=== PATIENT | female | born 1950 | race Caucasian/White ===

== ENCOUNTER 2019-07-31 13:37 | Outpatient (CLI) | payer MEDICARE, SELFPAY ==
--- NOTE | ~2019-07-31 | XR_ITS ---
EXAMINATION: XR foot RT min 3V EXAM DATE: 07/31/2019 14:21 INDICATION: Closed right fifth metatarsal fracture. TECHNIQUE: Right foot dorsoplantar, lateral and oblique projections obtained and reviewed. There is no prior study for comparison. FINDINGS: There is an orthopedic plate bridging a right fifth metatarsal fracture, which appears to be healed, but hardware is obscuring fifth metatarsal bone on 3 out of 4 images. There is moderate cruz llux valgus. There is mild to moderate first metatarsophalangeal and polyarticular midfoot primary os teoarthritis. There are no bony erosions identified. Pes planus. Small inferior calcaneal spur. Ther e are no acute fractures identified. IMPRESSION: 1. Intact right fifth metatarsal fusion hardware. 2. Hallux valgus, pes planus, osteoarthritis. Reviewed, dictated and finalized at location A.
== END 2019-07-31 13:38 | disposition home or self-care (01) ==
PROVIDERS: PCP Family Medicine; Visit Provider Podiatrist Foot & Ankle Surgery
DX: S92.352A Displaced fracture of fifth metatarsal bone, left foot, initial encounter for closed fracture (principal); Z98.1 Arthrodesis status; M20.11 Hallux valgus (acquired), right foot; M21.41 Flat foot [pes planus] (acquired), right foot; M19.071 Primary osteoarthritis, right ankle and foot
CPT/HCPCS: 73630

== ENCOUNTER 2019-08-09 08:01 | Outpatient (CLI) | payer MEDICARE, SELFPAY ==
--- NOTE | ~2019-08-09 | DEXA_ITS ---
Bone Density Report Name: Christy Mccormick Age: 69 Sex: Female Ethnicity: White Date of : 1950 Indication: osteopenia; monitoring treatment; height loss; prior fracture; cancer; hysterectomy; Referring Provider: David Ramos Study: Bone densitometry was performed. Exam Date: August 09, 2019 Accession number: [id number] Bone Density: Region BMD T-score Z-score Classification AP Spine (L1-L4) 0.817 -2.1 0.0 Osteopenia Femoral Neck (Left) 0.754 -0.9 0.9 Normal Total Hip (Left) 0.906 -0.3 1.2 Normal World Health Organization criteria for BMD impression classify patients as: Normal (T-score at or above -1.0), Osteopenia (T-score between -1.0 and -2.5), or Osteoporosis (T-score at or below -2.5). 10-year Fracture Risk: FRAX not reported because: Prior hip or vertebral fracture Treated for osteoporosis Previous Exams: Region Exam Age BMD T-score BMD Change BMD Change Date g/cm2 vs Baseline vs Previous AP Spine(L1-L4) 08/09/2019 69 0.817 -2.1 -0.081(-9.0%)# -0.081(-9.0%)# 04/20/2010 60 0.898 -1.4 Total Hip(Left) 08/09/2019 69 0.906 -0.3 0.030(3.4%)# 0.030(3.4%)# 04/20/2010 60 0.876 -0.5 *Denotes significance at 95% confidence level, LSC for AP Spine = 0.022 g/cm2, LSC for Total Hip = 0.027 g/cm2 Clinical Information Provided by Patient: Have had a previous hip or vertebral fracture Has had a low trauma fracture Is being treated for osteoporosis Has used the following medications: Fosamax (i.e. alendronate), Vitamin D, Calcium Has the following medical conditions: Cancer, Hysterectomy Patient maximum height was 65 Menopause Age: 50 No regular weight bearing exercise Drinks caffeinated beverages Onset of menses at age 12 Number of children 2 Impression: The patient has low bone mass, based on the Total Spine T-score. The patient has risk factors, including: previous fracture. No significant bone loss was observed. Discussion: PATIENT UNDER TREATMENT WITH NO SIGNIFICANT BMD LOSS SINCE LAST EXAM. In an untreated patient, BMD typically declines with age. A lack of decline or gain is usually a sign that treatment is efficacious and fracture risk is reduced. It is important to ask patients whether they are taking their medications and to encourage continued and appropriate compliance with their osteoporosis therapies to reduce fracture risk. It is also important to review their risk factors and encourage appropriate calcium and vitamin D intakes, exercise, fall prevention and other lifestyle measures. Follow-Up: Bob
--- NOTE | ~2019-08-09 | MM_ITS ---
EXAMINATION: MM screening aaron BI w mirna HISTORY: Screening mammogram TECHNIQUE: Craniocaudal and mediolateral oblique 3-D tomosynthesis images were obtained and synthetic 2-D images were generated. CAD analysis was submitted and interpreted. COMPARISON: 08/07/2018, 06/10/2017 bilateral digital screening mammogram examinations 06/14/2016 diagnostic right digital mammogram and limited right breast ultrasound 06/02/2016 bilateral digital screening mammogram BREAST PARENCHYMAL COMPOSITION: There are scattered areas of fibroglandular density. FINDINGS: Stable circumscribed approximately 7 mm opacity is noted in the posterior upper outer quadr ant of the right breast. There is no evidence of suspicious mass, calcification, or architectural dis tortion to suggest malignancy in either breast. There has been no suspicious interval change. IMPRESSION: 1. No mammographic evidence of malignancy. 2. Recommend routine screening mammography in one year. BI-RADS Category 2: Benign finding Reviewed, dictated and finalized at location A.
== END 2019-08-09 08:02 | disposition home or self-care (01) ==
PROVIDERS: PCP Family Medicine; Visit Provider Obstetrics & Gynecology
DX: Z12.31 Encounter for screening mammogram for malignant neoplasm of breast (principal); Z78.0 Asymptomatic menopausal state; M85.88 Other specified disorders of bone density and structure, other site
CPT/HCPCS: 77063; 77067; 77080

== ENCOUNTER 2020-04-24 13:38 | Outpatient (CLI) | payer MEDICARE, SELFPAY ==
--- NOTE | 2020-04-24 13:42 | ECHO_ITS ---
Patient Info Name: Christy Mccormick Age: 70 years : 1950 Gender: Female Ht: 62 in Wt: 265 lbs BSA: 2.37 m2 HR: 56 bpm BP: 160 / 83 mmHg Technical Quality: Fair Exam Date: 04/24/2020 1:53 PM Exam Location: [facility] Patient Status: Outpatient Admit Date: 04/24/2020 Staff Ordering Physician: Alvaro Saleh MD Dental Aide: Briana Miramontes RDCS Attending Provider: Alvaro Saleh MD Exam Type: CA echo doppler color flow Study Info Indications I10 - Essential (primary) hypertension Complete two-dimensional, color flow and Doppler transthoracic echocardiogram is performed. Summary 1. Complete two-dimensional, color flow and Doppler transthoracic echocardiogram is performed. 2. Left ventricular chamber dimension is normal. 3. Ventricular septum is sigmoid shaped. No LVOT obstruction. 4. Left ventricular systolic function is normal, estimated at 65-70%. 5. There is mildly increased left ventricular wall thickness. 6. The left ventricular diastolic function is grade I diastolic dysfunction. 7. E/e' 13 is mildly elevated. 8. Left atrial chamber dimension is mildly enlarged. 9. The mitral valve has moderately calcified annulus. 10. There is trace mitral valve regurgitation. 11. No pulmonary hypertension, estimated pulmonary arterial systolic pressure is 37 mmHg. 12. There is trace pulmonic regurgitation. Left Ventricle E/e' 13 is mildly elevated. Ventricular septum is sigmoid shaped. No LVOT obstruction. Left ventricular chamber dimension is normal. Left ventricular systolic function is normal, estimated at 65-70%. There is mildly increased left ventricular wall thickness. The left ventricular diastolic function is grade I diastolic dysfunction. Right Ventricle Right ventricular chamber dimension is normal. Right ventricular systolic function is normal. Left Atria Left atrial chamber dimension is mildly enlarged. Right Atria Right atrial chamber dimension is normal. Aortic Valve The aortic valve is trileaflet. There is no aortic valve stenosis. There is no aortic valve regurgitation. Pulmonic Valve There is trace pulmonic regurgitation. Mitral Valve The mitral valve has moderately calcified annulus. There is no mitral valve stenosis. There is trace mitral valve regurgitation. Tricuspid Valve There is no tricuspid valve regurgitation. No pulmonary hypertension, estimated pulmonary arterial systolic pressure is 37 mmHg. Pericardium/Pleural There is no pericardial effusion. Inferior Vena Cava Normal inferior vena cava with >50% collapse upon inspiration consistent with normal right atrial pressure, 5 mmHg. Aorta The aortic root size at the sinus of Valsalva is normal. Left Ventricular Outflow Tract Name Value Normal LVOT 2D LVOT Diameter 2.0 cm LVOT Doppler LVOT Peak Gradient 7 mmHg LVOT Mean Gradient 5 mmHg LVOT VTI 32 cm LVOT VTI/AV VTI Ratio 0.9 LVOT Stroke Volume 103 ml LVOT CO
== END 2020-04-24 13:39 | disposition home or self-care (01) ==
LOC: ANHCARD 13:41
PROVIDERS: Family Provider Family Medicine; PCP Internal Medicine; Visit Provider Internal Medicine
DX: I10 Essential (primary) hypertension (principal)
CPT/HCPCS: 93306

== ENCOUNTER 2020-08-02 07:50 | Outpatient (CLI) | payer MEDICARE, SELFPAY ==
--- NOTE | ~2020-08-02 | US_ITS ---
EXAMINATION: US retroperitoneal duplex ltd DATE: 08/02/2020 09:18 CDT INDICATION: Accelerated hypertension. TECHNIQUE: Sonographic imaging of the kidneys was performed with a 3.5 MHz transducer. Retroperitone al duplex sonogram of the renal arteries also obtained. FINDINGS: No focal flow abnormalities are seen in the renal arteries on color Doppler. The peak syst olic velocities of the right and left renal arteries and aorta are 120 cm per second, 139 cm per seco nd, and 41 cm per second, respectively. The velocities and renal to aortic ratios are within normal l imits. IMPRESSION: 1. No Doppler evidence of renal artery stenosis. Reviewed, dictated and finalized at location A.
== END 2020-08-02 07:51 | disposition home or self-care (01) ==
PROVIDERS: PCP Internal Medicine; Visit Provider Internal Medicine
DX: I10 Essential (primary) hypertension (principal)
CPT/HCPCS: 93976

== ENCOUNTER → 2020-08-08 08:41 | Outpatient (CLI) | payer MEDICARE, SELFPAY ==
--- NOTE | ~2020-08-08 | CT_ITS ---
EXAMINATION: CT lumbar spine wo con DATE: 08/08/2020 09:03 INDICATION: Lumbar radiculopathy. TECHNIQUE: Computed tomography (CT) of the lumbar spine was performed without intravenous contrast. A utomated exposure control and iterative reconstruction technique were employed. The dose-length produ ct was 845.61 mGy-cm. COMPARISON: Lumbar spine CT 06/10/2017 FINDINGS: There is a least 18 degrees dextroscoliosis of thoracolumbar spine. There is 5 mm retrolist hesis of L2 on L3, 3 mm anterolisthesis of L3 on L4, and 4 mm anterolisthesis of L4 on L5. There is s everely decreased disc height from L1-L2 through L3-L4 with endplate remodeling and mild chronic heig ht loss of the vertebral bodies. There is mildly decreased disc height at L4-L5 and severely decrease d disc height at L5-S1. The following disc levels are specifically discussed: L1-L2: The disc is bulging. There is severe right and mild left facet joint osteoarthritis. There is mild right and moderate left neural foraminal stenosis. There is mild central canal stenosis. L2-L3: The disc is bulging. There is severe right and mild left facet joint osteoarthritis. There is moderate bilateral neural foraminal stenosis. There is mild central canal stenosis. L3-L4: The disc is bulging. There is severe bilateral facet joint osteoarthritis. There is moderate r ight and mild left neural foraminal stenosis. There is mild central canal stenosis. L4-L5: The disc is bulging. There is severe bilateral facet joint osteoarthritis. There is moderate b ilateral neural foraminal stenosis. There is mild central canal stenosis. L5-S1: The disc is bulging. There is severe bilateral facet joint osteoarthritis. There is mild bilat eral neural foraminal stenosis. There is mild central canal stenosis. IMPRESSION: 1. Severe lumbar spondylosis, worsened from 06/10/2017. 2. Thoracolumbar dextroscoliosis. Reviewed, dictated and finalized at location B.
--- NOTE | ~2020-08-08 | XR_ITS ---
XR lumbar spine 2-3V DATE: 08/08/2020 09:17 INDICATION: Lumbar radiculopathy TECHNIQUE: Standing and neutral, flexion, extension lateral views COMPARISON: 08/08/2020 CT lumbar spine FINDINGS: There is diffuse osteopenia. There is prominent degenerative spurring of the included mid and lower thoracic spine. There is severe degenerative disc disease at L1-2, L2-3, L3-4 and L5-S1. There is degenerative change at the apophyseal joints with associated minimal grade 1 anterolisthesis at L3-4 and L4-5. No instability on flexion or extension is evident. IMPRESSION: Extensive degenerative changes of thoracic and lumbar spine Minimal Grade 1 anterolisthesis at L3-4 and L4-5 due to degenerative change at the apophyseal joints Diffuse osteopenia Reviewed, dictated and finalized at location A.
== END ==
PROVIDERS: PCP Internal Medicine; Visit Provider Nurse Practitioner Adult Health
DX: M47.817 Spondylosis without myelopathy or radiculopathy, lumbosacral region (principal); M48.07 Spinal stenosis, lumbosacral region; M41.9 Scoliosis, unspecified
CPT/HCPCS: 72100; 72131

== ENCOUNTER → 2020-09-04 11:21 | Outpatient (CLI) | payer MEDICARE, SELFPAY ==
--- NOTE | ~2020-09-04 | MM_ITS ---
EXAMINATION: MM screening aaron BI w mirna HISTORY: Screening mammogram TECHNIQUE: Craniocaudal and mediolateral oblique 3-D tomosynthesis images were obtained and synthetic 2-D images were generated. CAD analysis was submitted and interpreted. COMPARISON: 08/09/2019, 08/07/2018, 06/10/2017 bilateral digital screening mammogram examinations BREAST PARENCHYMAL COMPOSITION: The breasts are almost entirely fatty. FINDINGS: Stable circumscribed approximately 6 mm opacity is noted posteriorly in the upper outer reymundo drant of the right breast. There is no evidence of suspicious mass, calcification, or architectural d istortion to suggest malignancy in either breast. There has been no suspicious interval change. IMPRESSION: 1. No mammographic evidence of malignancy. 2. Recommend routine screening mammography in one year. BI-RADS Category 2: Benign finding(s). Reviewed, dictated and finalized at location A.
== END ==
PROVIDERS: Visit Provider Obstetrics & Gynecology
DX: Z12.31 Encounter for screening mammogram for malignant neoplasm of breast (principal)
CPT/HCPCS: 77063; 77067

== ENCOUNTER → 2020-11-05 08:41 | Outpatient (CLI) | payer MEDICARE, SELFPAY ==
--- NOTE | ~2020-11-05 | XR_ITS ---
XR shoulder RT min 2V DATE: 11/05/2020 09:16 INDICATION: Right shoulder pain TECHNIQUE: 5 views COMPARISON: None FINDINGS: Humeral head abuts the undersurface of the acromion consistent with severe chronic rotator cuff atrophy. There is severe osteoarthritic change at the right glenohumeral joint. There is diffuse osteopenia. No fracture or dislocation, periosteal reaction or bone destruction or a bnormal right shoulder soft tissue calcification. IMPRESSION: Severe osteoarthritis at the right glenohumeral joint Severe chronic rotator cuff atrophy Diffuse osteopenia Reviewed, dictated and finalized at location A.
== END ==
PROVIDERS: PCP Internal Medicine; Visit Provider Nurse Practitioner Adult Health
DX: M25.511 Pain in right shoulder (principal); M19.011 Primary osteoarthritis, right shoulder; M62.511 Muscle wasting and atrophy, not elsewhere classified, right shoulder; M85.811 Other specified disorders of bone density and structure, right shoulder
CPT/HCPCS: 73030

== ENCOUNTER → 2020-12-30 09:55 | Outpatient (CLI) | payer MEDICARE, SELFPAY ==
--- NOTE | ~2020-12-30 | MR_ITS ---
EXAMINATION: MR lumbar spine wo con DATE: 12/30/2020 10:50 INDICATION: Lumbar spinal stenosis. Low back pain. Right leg numbness. TECHNIQUE: Magnetic resonance imaging (MRI) of the lumbar spine was performed without intravenous con trast. Sequences included sagittal T2-weighted FSE, sagittal T2-weighted FS FSE, sagittal T1-weighted FSE, and axial T2-weighted FSE. COMPARISON: CT lumbar spine 08/08/2020 FINDINGS: There is 6 degrees levocurvature of lumbar spine. There is 6 mm retrolisthesis of L1 on L2 and L2 on L3 and 3 mm anterolisthesis of L3 on L4. There is a compression fracture of superior endpla te of L5 with less than 1/5 loss of height, low signal fracture line, and bone marrow edema. There is severely decreased disc height from L1-L2 through L3-L4 and mildly decreased disc height at L4-L5 an d L5-S1 with endplate remodeling. The distal spinal cord signal intensity is normal. The conus medull darren is at cord L1. The following disc levels are specifically discussed: L1-L2: The disc is bulging. There is severe right and mild left facet joint osteoarthritis. There is mild right and moderate left neural foraminal stenosis. There is mild central canal stenosis. L2-L3: The disc is bulging and has an annular fissure. There is severe right and mild left facet join t osteoarthritis. There is moderate bilateral neural foraminal stenosis. There is mild central canal stenosis. L3-L4: The disc is bulging and has an annular fissure. There is moderate right and mild left facet dusty int osteoarthritis. There is moderate right and mild left neural foraminal stenosis. There is mild ce ntral canal stenosis. L4-L5: The disc does not extend beyond the endplate margin. There is severe bilateral facet joint ost eoarthritis. There is mild bilateral neural foraminal stenosis. There is no central canal stenosis. L5-S1: The disc is bulging. There is severe bilateral facet joint osteoarthritis. There is mild bilat eral neural foraminal stenosis. There is no central canal stenosis. IMPRESSION: 1. L5 compression fracture, likely acute or subacute. 2. Severe lumbar spondylosis. Reviewed, dictated and finalized at location A.
== END ==
PROVIDERS: PCP Internal Medicine
DX: M47.817 Spondylosis without myelopathy or radiculopathy, lumbosacral region (principal); M48.07 Spinal stenosis, lumbosacral region
CPT/HCPCS: 72148

== ENCOUNTER → 2021-09-10 09:41 | Outpatient (CLI) | payer MEDICARE, SELFPAY ==
--- NOTE | ~2021-09-10 | MM_ITS ---
EXAMINATION: MM screening aaron BI w mirna HISTORY: Screening TECHNIQUE: Craniocaudal and mediolateral oblique 3-D tomosynthesis images were obtained and synthetic 2-D images were generated. CAD analysis was submitted and interpreted. COMPARISON: Comparison to multiple prior studies sequentially, with oldest reviewed study dated 10/2016. BREAST PARENCHYMAL COMPOSITION: Breast composed of scattered areas of fibroglandular density FINDINGS: There is no evidence of suspicious mass, calcification, or architectural distortion to sugg est malignancy in either breast. There has been no suspicious interval change. IMPRESSION: 1. No mammographic evidence of malignancy. 2. Recommend routine screening mammography in one year. BI-RADS Category 1: Negative Reviewed, dictated and finalized at location A.
== END ==
PROVIDERS: PCP Internal Medicine; Visit Provider Obstetrics & Gynecology
DX: Z12.31 Encounter for screening mammogram for malignant neoplasm of breast (principal)
CPT/HCPCS: 77063; 77067

== ENCOUNTER → 2022-12-09 14:59 | Outpatient (CLI) | payer MEDICARE, SELFPAY ==
--- NOTE | ~2022-12-09 | MM_ITS ---
EXAMINATION: MM screening aaron BI w mirna HISTORY: Screening mammogram TECHNIQUE: Craniocaudal and mediolateral oblique 3-D tomosynthesis images were obtained and synthetic 2-D images were generated. CAD analysis was submitted and interpreted. COMPARISON: 09/10/2021 bilateral screening mammogram BREAST PARENCHYMAL COMPOSITION: The breasts are almost entirely fatty. FINDINGS: There is no evidence of suspicious mass, calcification, or architectural distortion to sugg est malignancy in either breast. There has been no suspicious interval change. IMPRESSION: 1. No mammographic evidence of malignancy. 2. Recommend routine screening mammography in one year. BI-RADS Category 1: Negative Reviewed, dictated and finalized at location A.
== END ==
PROVIDERS: PCP Nurse Practitioner; Visit Provider Obstetrics & Gynecology
DX: Z12.31 Encounter for screening mammogram for malignant neoplasm of breast (principal)
CPT/HCPCS: 77063; 77067

== ENCOUNTER 2023-08-01 08:32 | Outpatient (CLI) | payer MEDICARE, SELFPAY ==
--- NOTE | ~2023-08-01 | XR_ITS ---
EXAMINATION: XR abdomen/kub 1V DATE: 08/01/2023 08:59 INDICATION: Other abnormalities TECHNIQUE: A supine view of the abdomen on 2 radiographs was obtained. COMPARISON: None. FINDINGS: There is a large amount of stool scattered throughout the colon which could be seen with constipation . No dilated loops of gas-filled bowel to suggest obstruction. There are surgical clips in the pelvis . Incompletely visualized antegrade intramedullary nitin fixation at the proximal right femur. Lung bas es are clear. Heart size is normal. Slight S-shaped curvature of the lumbar and lower thoracic spine with moderate to severe spondylosis. IMPRESSION: 1. Large amount of colonic stool consistent with constipation. Reviewed, dictated and finalized at location A.
== END 2023-08-01 08:33 ==
LOC: MICIMG 08:34
PROVIDERS: PCP Nurse Practitioner; Visit Provider Nurse Practitioner Family
DX: R19.5 Other fecal abnormalities (principal)
CPT/HCPCS: 74018

== ENCOUNTER 2024-05-03 10:19 | Outpatient (CLI) | payer MEDICARE, SELFPAY ==
--- NOTE | ~2024-05-03 | MM_ITS ---
EXAMINATION: MM screening [facility] BI w mirna HISTORY: Screening TECHNIQUE: Craniocaudal and mediolateral oblique 3-D tomosynthesis images were obtained and synthetic 2-D images were generated. CAD analysis was submitted and interpreted. COMPARISON: Comparison to multiple prior studies sequentially, with oldest reviewed study dated 08/07. BREAST PARENCHYMAL COMPOSITION: Not dense: There are scattered areas of fibroglandular density. FINDINGS: There is no evidence of suspicious mass, calcification, or architectural distortion to sugg est malignancy in either breast. There has been no suspicious interval change. IMPRESSION: 1. No mammographic evidence of malignancy. 2. Recommend routine screening mammography in one year. BI-RADS Category 1: Negative Reviewed, dictated and finalized at location B. SIOLOGIST
== END 2024-05-03 10:20 | disposition home or self-care (01) ==
LOC: MICIMG 10:20
PROVIDERS: PCP Nurse Practitioner; Visit Provider Obstetrics & Gynecology
DX: Z12.31 Encounter for screening mammogram for malignant neoplasm of breast (principal)
CPT/HCPCS: 77063; 77067

== ENCOUNTER 2024-10-19 17:38 | Emergency (ER) | payer MEDICARE, SELFPAY ==
--- NOTE | ~2024-10-19 | XR_ITS ---
EXAMINATION: XR knee LT 3V DATE: 10/19/2024 19:06 INDICATION: Left knee injury post fall TECHNIQUE: Anteroposterior, oblique and lateral views of the left knee were obtained COMPARISON: 07/18/2014 FINDINGS: Again seen is a left total knee arthroplasty with likely revised longstem tibial component and withou t patellar resurfacing which remains in near-anatomic alignment. No periprosthetic lucency to suggest loosening or infection. No acute fracture. There is been progression of patellar remodeling with sug gestion of loss of bone stock with decreased AP thickness of the patella. Shadow of a likely prominen t greater saphenous vein projects over the medial subcutaneous tissues of the left knee and proximal calf. No evident knee joint effusion. IMPRESSION: 1. Left total knee arthroplasty with no knee joint effusion or acute osseous abnormality. Reviewed, dictated and finalized at location A. IMPRESSION: 1. Left total knee arthroplasty with no knee joint effusion or acute osseous ab normality.
--- NOTE | ~2024-10-19 | CT_ITS ---
EXAMINATION: 1. CT facial & cervical spine wo DATE: 10/19/2024 18:39 INDICATION: Fall with head, facial and cervical spine injury TECHNIQUE: 1. Computed tomography (CT) of the maxillofacial region and of the cervical spine were performed with out intravenous contrast. Sagittal and coronal reconstructions of both regions were obtained. Automat ed exposure control and iterative reconstruction technique were employed. The dose-length product was 517.85 mGy-cm. COMPARISON: Head CT dated 11/05/2018 FINDINGS: Maxillofacial CT: Again seen are old healed fractures of the bilateral nasal bones and nasal septum the latter which is deviated towards the right. There appears be slight change in contour of the left nasal bone with ov erlying soft tissue swelling and a few tiny foci of soft tissue gas at the bridge of the nose suggest ing recurrent nondisplaced left nasal bone fracture. No other acute maxillofacial fractures identifie d. Zygomatic arches, mandible and theodore of the orbits and paranasal sinuses remain intact. There is s evere left-sided and mild to moderate right-sided temporomandibular osteoarthritis. Particularly alfred g the left and right mandibular rami where there is alveolar ridge resorptive changes. Multiple denta l restorations. Mild mucosal thickening the bilateral ethmoid sinuses. Mastoid air cells, middle ear cavities are clear. Cervical spine CT: Straightening of the normal cervical lordosis which could be positional or due to muscle spasm. Moder ate osteoarthritis at the atlantoaxial articulation. Chronic appearing mild anterior wedging at C7 wi th appearance on the coronal plane suggesting a possible developmental partially butterfly vertebrae. Remaining vertebral body heights are normal. No acute fracture. Lucent hemangioma at the left side o f the C7 vertebral body with typical thickened internal vertical trabecular pattern. Moderate disc he ight loss at C3-C4 through C6-C7 and at T2-T3. Mild disc height loss at C2-C3 and C7-T1. Posterior en dplate osteophytes contributing mild central canal stenosis at C4-C5 through C6-C7. Multilevel modera te to severe cervical facet and uncovertebral osteoarthritis. This contributes to moderate neural for aminal stenosis on the more right at C3-C4, C4-C5 and bilaterally at C5-C6 and C6-C7. Additional mode rate facet osteoarthritis in the visualized upper thoracic spine along with fusion across the right-s ided T2-T3 and T3-T4 and T4-5 facet joints with moderate neural foraminal stenosis on the right at T2 -T3 and T3-T4. Mild neural from stenosis at many of the remaining cervical and upper thoracic neural foramina. Mild emphysema and mild biapical pleural-parenchymal scarring at the visualized upper lungs . Cervical soft tissues are unremarkable. IMPRESSION: 1. Old healed fractures of the bilateral nasal bones and the nasal septum with likely recurrent nondi splaced fracture of the left nasal bone. 2. Moderate cervical and upper thoracic spondylosis without acute osseous abnormality. Reviewed, dictated and finalized at location A. IMPRESSION: 1. Old healed fractures of the bilateral nasal bones and the nasal septum with likely recurrent nondisplaced fracture of the left nasal bone. 2. Moderate cervical and upper thoracic spondylosis without acute osseous abnor mality.
--- NOTE | ~2024-10-19 | CT_ITS ---
EXAMINATION: CT brain wo con DATE: 10/19/2024 18:38 INDICATION: Fall with facial injury TECHNIQUE: Computed tomography (CT) of the head was performed without intravenous contrast. Sagittal and coronal reconstructions were performed. The mA was adjusted according to patient size. Iterative reconstruction technique was employed. The dose-length product was 681.00 mGy-cm. COMPARISON: head CT dated 11/05/18 FINDINGS: No calvarial fracture. Chronic fracture deformity of the nasal bones and anterior nasal septum which appear unchanged since 2019. No acute intracranial hemorrhage, acute infarction or abnormal extra axi al fluid collection. There is mild scattered white matter hypoattenuation consistent with chronic sma ll vessel ischemic disease. Symmetric prominence of the sulci consistent with mild age-appropriate di ffuse cerebral volume loss. Ventricles are normal and symmetric. No mass/mass effect. Changes of bila teral intraocular lens replacement. The orbits and mastoid air cells are normal. Mild mucoperiosteal thickening in the ethmoid sinuses. IMPRESSION: 1. No acute fracture or acute intracranial process. 2. Age-related changes the brain including mild diffuse volume loss and mild scattered white matter h ypoattenuation consistent with chronic small vessel ischemic disease. Reviewed, dictated and finalized at location A. IMPRESSION: 1. No acute fracture or acute intracranial process. 2. Age-related changes the brain including mild diffuse volume loss and mild sc attered white matter hypoattenuation consistent with chronic small vessel ische erinn disease.
--- NOTE | ~2024-10-19 | XR_ITS ---
EXAMINATION: XR shoulder RT min 2V DATE: 10/19/2024 19:06 INDICATION: Right shoulder injury post fall TECHNIQUE: AP internally rotated and transscapular Y views of the right shoulder were obtained. COMPARISON: 11/05/20 FINDINGS: Chronic right rotator cuff arthropathy with cephalad subluxation of the humeral head with respect to the glenoid and severe narrowing of the subacromial space with progressive remodeling of the undersur face of the acromion. Again seen is secondary chronic appearing fragmentation of the anterior acromio n. No acute fracture. 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 Visualized port ion of the right lung remain clear with no evident pleural effusion or pneumothorax. IMPRESSION: Chronic right rotator cuff arthropathy with secondary chronic fragmentation of the acromion and sever e right glenohumeral and acromial clavicular osteoarthritis. No acute osseous abnormality. Reviewed, dictated and finalized at location A. IMPRESSION: Chronic right rotator cuff arthropathy with secondary chronic fragmentation of the acromion and severe right glenohumeral and acromial clavicular osteoarthrit is. No acute osseous abnormality.
[2024-10-19 17:57] VITALS: BP 192/98; PULSE 86; RESP 16; TEMP 36.6; O2SAT 98
--- NOTE | 2024-10-19 18:41 | ED.FALL ---
HPI - Fall General Chief Complaint: Fall Stated Complaint: fall Time Seen by Provider: 10/19/24 18:23 Source: patient and EMS Mode of arrival: EMS Limitations: no limitations History of Present Illness HPI Narrative: 74 YEARS OLD WHITE FEMALE, TRIPPED AND FELL FACE DOWN AT HOME PRIOR TO ARRIVAL COMPLAINING OF FACIAL PAIN, RIGHT SHOULDER PAIN LEFT KNEE PAIN. PATIENT IS NOT ON ANTI-PLATELET OR ANTICOAGULANT MEDICATION, DENIES OTHER INJURIES, NO LOSS OF CONSCIOUSNESS complaint: fall Related Data Home Medications ?Medication ?Instructions ?Recorded ?Confirmed ?Last Taken ?Type [id number] 2.25 mg-folic tablet PO 04/09/19 09/12/24 Unknown History acid 100 [id number] acid tablet ([place] Varina Immune Support) lactobacillus combination no.9 4 4,000 mmu cells PO DAILY 07/17/20 09/12/24 Unknown History billion cell capsule (Adult 50 Plus Probiotic) psyllium husk 0.52 gram capsule 0.52 g PO DAILY 07/17/20 09/12/24 Unknown History (Daily Fiber) naltrexone 4.5 mg capsule mg PO 06/21/23 09/12/24 Unknown History calcium carbonate (Calcium 500) 500 mg PO DAILY 09/12/24 09/12/24 Unknown History Allergies Allergy/AdvReac Type Severity Reaction Status Date / Time No Known Allergies Allergy Verified 09/12/24 07:36 Review of Systems Review of Systems: All systems reviewed & are unremarkable except as noted in HPI and below PMFSH Past Medical History Medical History Degenerative disc disease Gallstones Hiatal hernia PVC (premature ventricular contraction) Sleep apnea MVP (mitral valve prolapse) Endometrial cancer Arthritis Sleep disorder High blood pressure Arthritis of foot, left, degenerative Hallux valgus (acquired), right foot Posterior tibial tendon dysfunction (PTTD) of left lower extremity Flat foot [pes planus] (acquired), left foot Surgical History Surgical History History of left knee replacement History of partial thyroidectomy History of carpal tunnel release History of hernia repair History of foot surgery History of surgery on lower extremity right femur History of total right knee replacement 2009 History of hysterectomy History of arthroscopic knee surgery right- 1998 History of D&C History of breast biopsy History of tonsillectomy History of endoscopy per pt's paperwork. Colonoscopy/Endoscopy History of lumbar surgery 3 Ablations Lumbar SI joint [id number] several steroid injjections lumbar 2009, [id number] History of colonoscopy 2006, 2011, and 2018 Family History Family History Father Hypertension Heart disease Mother Hypertension Cerebrovascular accident Family history of malignant neoplasm of breast in first degree relative, Onset Age: 89 Breast cancer Sibling Family history of malignant neoplasm of cervix, Onset Age: 66 Family history of malignant neoplasm of uterus Endometrial cancer Hypertension Depression Other Hypertension Depression Heart disease Thyroid disorder Grandparent Breast cancer Other Arthritis Family history of arthritis Family history of malignant neoplasm Social History Social History Smoking status: Never smoker Second hand tobacco smoke exposure: No Alcohol intake: never Substance use: never Substance use type: does not use Do You Feel Safe in your Home?: Yes Lack of Transportation: No Lack of Food: Never True Current Housing: I Have Housing Concerned About Future Housing: No Difficulty Paying Gas/Electric Bills: No Difficulty Paying for Meds: No Currently Unemployed: No Education: High School Diploma/GED Difficulty w/ Childcare or Family Care: No Exam Narrative: GENERAL APPEARANCE: WELL-DEVELOPED, WELL-NOURISHED SKIN: NORMAL COLOR HEAD: NORMOCEPHALIC, NONTRAUMATIC EYES: CLEAR CONJUNCTIVA ENT: OROPHARYNX NORMAL, EARS NORMAL, NASAL BRIDGE SWELLING AND BRUISES, UPPER LIP CONTUSION NECK: SUPPLE, NONTENDER CHEST AND RESPIRATORY: AIRWAY PATENT, NO RESPIRATORY DISTRESS, NO ACCESSORY MUSCLE USE HEART: REGULAR RATE/RHYTHM ABDOMEN: SOFT, NONTENDER, NO ORGANOMEGALY, QUIET BOWEL SOUNDS VASCULAR: NORMAL PERIPHERAL PULSES, NORMAL CAPILLARY REFILL. MUSCULOSKELETAL: SLIGHT LIMITED RANGE OF MOTION OF THE RIGHT SHOULDER, CAUSE OF PAIN SLIGHT TENDERNESS LEFT KNEE WITHOUT ANY BRUISES OR DEFORMITY OR SWELLING NEUROLOGIC: ALERT AND ORIENTED ?3, SKATE HOP IS NORMAL TESTED, NO GROSS MOTOR DEFICIT Course Vital Signs Vital signs: Vital Signs Temperature 36.6 C 10/19/24 17:57 Pulse Rate 86 10/19/24 17:57 Respiratory Rate 16 10/19/24 17:57 Blood Pressure 192/98 H 10/19/24 17:57 Pulse Oximetry 98 10/19/24 17:57 Oxygen Delivery Room Air 10/19/24 17:57 Temperature 36.6 C 10/19/24 17:57 Pulse Rate 86 10/19/24 17:57 Respiratory Rate 16 10/19/24 17:57 Blood Pressure 192/98 H 10/19/24 17:57 Pulse Oximetry 98 10/19/24 17:57 Oxygen Delivery Room Air 10/19/24 17:57 MDM - Fall MDM Narrative Medical decision making narrative: DIFFERENTIAL DIAGNOSIS, CONTUSION, HEMATOMA, FRACTURE CT HEAD, CT CERVICAL SPINE AND FACIAL BONE WITHOUT CONTRAST SHOWED NO ACUTE ABNORMALITY X-RAY OF THE RIGHT SHOULDER AND LEFT KNEE SHOWED NO ACUTE ABNORMALITY Differential Diagnosis Differential diagnosis: Likely concussion without loss of consciousness Imaging Data Radiologist's impression: Impressions Head CT 10/19/24 18:45 IMPRESSION: 1. No acute fracture or acute intracranial process. 2. Age-related changes the brain including mild diffuse volume loss and mild scattered white matter hypoattenuation consistent with chronic small vessel ischemic disease. Head/Cervical Spine/Facial Bones CT 10/19/24 19:40 IMPRESSION: 1. Old healed fractures of the bilateral nasal bones and the nasal septum with likely recurrent nondisplaced fracture of the left nasal bone. 2. Moderate cervical and upper thoracic spondylosis without acute osseous abnormality. Shoulder X-Ray 10/19/24 20:42 IMPRESSION: Chronic right rotator cuff arthropathy with secondary chronic fragmentation of the acromion and severe right glenohumeral and acromial clavicular osteoarthritis. No acute osseous abnormality. Knee X-Ray 10/19/24 20:47 IMPRESSION: 1. Left total knee arthroplasty with no knee joint effusion or acute osseous abnormality. Critical Care Time Critical Care Time Critical Care Time: No Discharge Plan Discharge Clinical Impression: Closed fracture nasal bone, Contusion of face Patient Disposition: Home Condition: Stable Additional Instructions: RETURN IF SYMPTOMS ARE WORSENING , CALL YOUR FAMILY PHYSICIAN FOR APPOINTMENT, TAKE TYLENOL NEEDED FOR ACHES AND PAIN, CONTINUE HOME MEDICATIONS. Patient Language: Upper Sorbian Prescriptions: No Action naltrexone 4.5 mg capsule PO calcium carbonate [Calcium 500] 500 mg calcium (1,250 mg) tablet 500 mg PO DAILY [place] Varina Immune Support 2.25 mg iron- 100 mcg tablet PO psyllium husk [Daily Fiber] 0.52 gram capsule 0.52 g PO DAILY Adult 50 Plus Probiotic 4 billion cell capsule 4,000 mmu cells PO DAILY Rx Instructions: administer with a meal cyanocobalamin (vitamin B-12) 2,500 mcg tablet 2,500 mcg PO DAILY Qty: 30 5RF meloxicam 15 mg tablet See Rx Instructions .ROUTE .COMPLEX Qty: 30 5RF Dose Instruction: TAKE 1 TABLET BY MOUTH DAILY WITH FOOD Rx Instructions: TAKE 1 TABLET BY MOUTH DAILY WITH FOOD levothyroxine 175 mcg tablet 175 mcg PO DAILY Qty: 90 1RF Zepbound 15 mg/0.5 mL pen injector 15 mg subcut WEEKLY Qty: 2 5RF triamterene-hydrochlorothiazid 37.5-25 mg tablet 1 tablet PO DAILY Qty: 90 1RF amlodipine 10 mg tablet 10 mg PO DAILY Qty: 90 3RF raloxifene 60 mg tablet See Rx Instructions .ROUTE .COMPLEX Qty: 90 3RF Dose Instruction: TAKE 1 TABLET BY MOUTH DAILY Rx Instructions: TAKE 1 TABLET BY MOUTH DAILY paroxetine HCl 30 mg tablet 30 mg PO DAILY Qty: 90 3RF ropinirole 4 mg tablet See Rx Instructions .ROUTE .COMPLEX Qty: 90 3RF Dose Instruction: TAKE 1 TABLET BY MOUTH DAILY Rx Instructions: TAKE 1 TABLET BY MOUTH DAILY nebivolol 10 mg tablet 10 mg PO DAILY Qty: 90 3RF Follow-up/Referrals: Ahmet Stone MD [Physician] - 10/23/24 PHYSICIAN NOT ON STAFF,NONSTAFF [Non-Staff] -
--- OUTSIDE RECORDS SUMMARY | 2024-10-19 18:53 | XMS_ITS | Continuity of Care Document ---
Author Organization [facility] Address [address] [place] [address] [place] [address] Phone Care Team Providers Care Character Impersonator Name Role Phone Mcneal OD, Usama Unavailable Unavailable Procedures Procedure Date Office/outpatient Visit, Est Eye Exam Established Pt Advance Directives Directive Yes / No Effective Date File Name No Information Encounters Encounter Description Practice Location Reason(s) For Visit Diagnoses Date Provider Providers Copied on Encounter Office/outpat ient Visit, Est [facility], [address] [place] [address] [address], [place], [place], [id number], tel:[phone] [facility] No Information Oct-0 5-201 0 Mcneal OD Usama. [address], [place], [place], [facility], [place]. tel:[phone] [facility], [address] [place] [address] [address], [place], [place], [id number], tel:[phone] [facility] No Information Aug- 3-201 0 Mcneal OD Usama. [address], [place], [address], . tel:[phone] Family History Family Member Type Diagnosis Age At Onset No Information Payers Payer name Insurance type Covered green party ID Authoriza tion(s) No Information Social History Type Description Quantity Date Captured Comments Sex Female Smoking Status No Information Chief Complaint And Reason For Visit No Information Reason For Referral Reason For Referral No Information History Of Present Illness Encounter Date Complaint History Of Prese nt Illness No Information Functional Status Date Functional Assessmen t No Information Instructions Date Instruction Additional Infor mation No Information Assessments Type Assessment Date No Information Patient Care Teams Name Effective Dates (start - stop) Status Members No Information
--- OUTSIDE RECORDS SUMMARY | 2024-10-19 18:53 | XMS_ITS | Clinical Summary ---
Author Organization [facility] Address [address], [facility] [address] [place] [address] Phone Care Team Providers Care Guard Sergeant Name Role Phone Rufino Nix MD Primary Care Provider [phone] Usama Figueroa DO Unavailable [phone] Allergies No known active allergies Medications diclofenac (VOLTAREN) 75 MG Tablet Delayed Response Take 75 mg by mouth 2 times daily. Active quinapril (ACCUPRIL) 40 MG Tablet Take 40 mg by mouth every evening. Active PARoxetine (PAXIL) 20 MG Tablet Take 20 mg by mouth daily. Active triamterene-hydr ochlorothiazide (DYAZIDE) 37.5-25 MG Capsule Take 1 Cap by mouth Every other day. Active levothyroxine (SYNTHROID) 200 MCG Tablet Take 200 mcg by mouth daily. Active CALCIUM CARBONATE PO Take by mouth 2 times daily. Active Multiple Vitamins-Mineral s (MULTIVITAMIN PO) Take by mouth daily. Active Glucosamine-Alexis droitin (MOVE FREE PO) Take by mouth daily. Active raloxifene (EVISTA) 60 MG Tablet Take 60 mg by mouth daily. Active Nebivolol HCl 20 MG Tablet Take by mouth daily. Active solifenacin (VESICARE) 10 MG Tablet Take 10 mg by mouth daily. Active rOPINIRole (REQUIP) 2 MG Tablet Take 2 mg by mouth nightly. Active Ferrous Sulfate (IRON) 325 (65 FE) MG Tablet Take by mouth 2 times daily. Active metroNIDAZOLE (FLAGYL) 500 MG Tablet Take 1 Tab by mouth 3 times daily. 30 Tab 0 12/04/2015 Active Immunizations Immunization Administration Dates Next Due Covid-19, Mrna, Lnp-s, Pf, 30 Mcg/0.3 Ml Dose (P fizer) 06/10/2020,05/20/2020 Family History Medical History Relation Name Comments Breast Cancer Other Prostate Cancer Other Stroke Other Uterine Cancer Other Relation Name Status Comments Other Social History Tobacco Use Types Packs/Day Years Used Date Smoking Tobacco: Never Alcohol Use Standard Drinks/Week Comments No 0 (1 standard drink = 0.6 oz pur e alcohol) Comments No Sex and Gender Information Value Date Recorded Sex Assigned at Not on file Legal Sex Female 7:06 PM CDT Gender Identity Not on file Sexual Orientation Not on file Occupation Industry Job Start Date Job End Date retired [employer] Not on file Not on file Not on file Last Filed Vital Signs Vital Sign Reading Time Taken Comments Blood Pressure 128/86 12/04/2015 11:36 AM CDT Pulse 50 12/04/2015 11:36 AM CDT Temperature 35.8 C (96.5 F) 12/04/2015 11:36 AM CDT Respiratory Rate 16 12/04/2015 11:3 6 AM CDT Oxygen Saturation 86% 12/04/2015 11: 36 AM CDT Inhaled Oxygen Concentration - - Weight 137.5 kg (303 lb 3.2 oz) 016 11:36 AM CDT Height 160 cm (5' 3) 12/04/2015 11:36 AM CDT Body Mass Index 53.71 12/04/2015 11:36 AM CDT Plan of Treatment Health Maintenance Due Date Last Done Comments Hepatitis C Virus (HCV) Screening 1950 TdaP Immunization 1950 Cologuard 1995 Immunochemical Fecal Occult Blood 1995 Pneumococcal Immunization (5 0+ years) (1 of 1 - PCV) 02/11/2000 Zoster Immunization (1 of 2) 02/11/2000 SARS-COV-2 Immunization (3 - 2023- season) 2023 06/10/2020, 05/20/2020 Influenza Immunization (#1) 2024 Respiratory Syncytial Virus (RSV) Immunization (Adult) (1 - 1-dose 75+ series) 2025 Colonoscopy 06/17/2025 06/18/2015 Colorectal Cancer Screening 06/17/2025 Hepatitis B Immunization Aged Out No longer eligible based on patient's age to complete this topic Human Papillomavirus (HPV) Immunization Aged Out No longer eligible b ased on patient's age to complete this topic Meningococcal Immunization (ACWY) Aged Out No longer eligible b ased on patient's age to complete this topic Rotavirus Immunization Aged Out No lo nger eligible based on patient's age to complete this topic Procedures Procedure Name Priority Date/Time Associated Diagnosis Comments COLONOSCOPY Routine 06/18/2015 from Last 3 Months or Most Recently Relevant to Health Maintenance Results * COLONOSCOPY (06/18/2015) us Rufino Nix MD PROCEDURE/MINOR SURGICAL O RDERABLES Final Result from Last 3 Months or Most Recently Relevant to Health [place] [address] MEDICARE [facility] Care Teams Guard Sergeant Relationship Specialty Start Date End Date Rufino Nix MD [address], [place] [id number] PCP - General Family Medicine 06/18/15 Usama Figueroa DO [address] [place] [id number] Gastroenterology 06/18/15
--- OUTSIDE RECORDS SUMMARY | 2024-10-19 18:53 | XMS_ITS | Clinical Summary ---
Author Organization [facility] Address [address] [place] [address] Care Team Providers Care Title Lawyer Name Role Phone Unavailable Primary Care Provider Unavailabl e Social History Tobacco Use Types Packs/Day Years Used Date Smoking Tobacco: Never Assessed Comments Unknown Sex and Gender Information Value Date Recorded Sex Assigned at Not on file Legal Sex Female 4:05 PM CDT Gender Identity Not on file Sexual Orientation Not on file Plan of Treatment Health Maintenance Due Date Last Done Comments Colorectal Cancer Screening Colonoscopy (10 Years) 1950 Hepatitis C 02/11/1968 DTaP, Tdap and Td Vaccines ( 1 - Tdap) 1969 Mammogram Screening 1990 Pneumococcal Vaccine: 50+ Ye ars (1 of 1 - PCV) 02/11/2000 Zoster Vaccines (1 of 2) 02/11/2000 Dexa Scan (General) 2015 COVID-19 Vaccine ( - 2023-2 5 season) 2023 RSV Immunization or 60+ Years (1 - 1-dose 75+ series) 2025 Meningococcal B Vaccine Aged Out No l onger eligible based on patient's age to complete this topic Meningococcal Vaccine Aged Out No waleska rashida eligible based on patient's age to complete this topic RSV Immunizations Under 20 Months Aged Out No longer eligible based on patient's age to complete this topic
--- OUTSIDE RECORDS SUMMARY | 2024-10-19 18:53 | XMS_ITS | Clinical Summary ---
Author Organization [facility] Address [address] [place] [address] Phone Care Team Providers Care Child Care Specialist Name Role Phone Rufino Nix MD Primary Care Provider [phone] Allergies No known active allergies Medications quinapril HCl (QUINAPRIL ORAL) Take by mouth. Active PAROXETINE HCL ORAL Take by mouth. Active TRIAMTERENE-HYD ROCHLOROTHIAZID ORAL Take by mouth. Active levothyroxine sodium (SYNTHROID ORAL) Take by mouth. Active raloxifene HCl (EVISTA ORAL) Take by mouth. Active nebivolol HCl (BYSTOLIC ORAL) Take by mouth. Active ropinirole HCl (ROPINIROLE ORAL) Take by mouth. Active OXYBUTYNIN CHLORIDE ORAL Take by mouth. Active Diclofenac Sodium 1.5 % Drops Apply to affected area. Active Social History Tobacco Use Types Packs/Day Years Used Date Smoking Tobacco: Never Smokeless Tobacco: Never Alcohol Use Standard Drinks/Week Comments Not Currently 0 (1 standard drink = 0.6 oz pur e alcohol) Comments Unknown Sex and Gender Information Value Date Recorded Sex Assigned at Not on file Legal Sex Female 11:59 AM FISH TECHNOLOGIST Gender Identity Not on file Sexual Orientation Not on file Last Filed Vital Signs Vital Sign Reading Time Taken Comments Blood Pressure 166/81 04/20/2019 8:20 AM FISH TECHNOLOGIST Pulse 51 04/20/2019 8:20 AM FISH TECHNOLOGIST Temperature 36.2 C (97.2 F) 04/20/2019 7:52 AM FISH TECHNOLOGIST Respiratory Rate 12 04/20/2019 8:20 AM FISH TECHNOLOGIST Oxygen Saturation 100% 04/20/2019 8:20 AM FISH TECHNOLOGIST Inhaled Oxygen Concentration - - Weight 134.3 kg (296 lb) 04/20/2019 6:45 AM FISH TECHNOLOGIST Height 160 cm (5' 3) 04/20/2019 6:45 AM FISH TECHNOLOGIST Body Mass Index 52.43 04/20/2019 6:45 AM FISH TECHNOLOGIST Plan of Treatment Health Maintenance Due Date Last Done Comments DTAP/TDAP/TD VACCINES (1 - Tdap) 1969 BREAST CANCER SCREENING 1990 COLORECTAL SCREENING 1995 Colorectal Cancer Screening 1995 FIT-DNA Q 3 years 1995 FIT/FOBT Q 1 year 1995 Flex Sig/CT Colonography Q 5 years 1995 PNEUMOCOCCAL VACCINE 50+ YEARS (1 of 1 - PCV) 02/11/20 00 ZOSTER VACCINE (1 of 2) 02/11/2000 OSTEOPOROSIS SCREENING 2015 INFLUENZA VACCINE (#1) 2024 RSV VACCINE (60+ or ) (1 - 1-dose 75+ series) [address] [place] [id number] [facility] [id number] [facility] [place]: [place] [address] Care Teams Child Care Specialist Relationship Specialty Start Date End Date Rufino Nix MD [address] [place] [id number] PCP - General Family Practice 04/19/19
--- NOTE | 2024-10-19 20:41 | PC.NURSE ---
assisted patient to bathroom with wheelchair. patient returned to bed and hooked back up to monitor. patient resting comfortably with call light at side.
[2024-10-19 21:36] VITALS: BP 138/50; PULSE 79; RESP 18; O2SAT 99
== END 2024-10-19 21:18 | disposition home or self-care (01) ==
PROVIDERS: Emergency Provider Emergency Medicine; PCP Nurse Practitioner
DX: S02.2XXA Fracture of nasal bones, initial encounter for closed fracture (principal); I34.1 Nonrheumatic mitral (valve) prolapse; E89.0 Postprocedural hypothyroidism; G47.30 Sleep apnea, unspecified; M19.072 Primary osteoarthritis, left ankle and foot; Z96.652 Presence of left artificial knee joint; Z96.653 Presence of artificial knee joint, bilateral; Z90.710 Acquired absence of both cervix and uterus; W19.XXXA Unspecified fall, initial encounter; M47.814 Spondylosis without myelopathy or radiculopathy, thoracic region; M47.812 Spondylosis without myelopathy or radiculopathy, cervical region; M19.011 Primary osteoarthritis, right shoulder
CPT/HCPCS: 70450; 70486; 72125; 73030; 73562; 99284

== ENCOUNTER 2024-10-22 11:09 | Outpatient (CLI) | payer MEDICARE, SELFPAY ==
--- OUTSIDE RECORDS SUMMARY | 2024-10-22 11:36 | XMS_ITS | Clinical Summary ---
Author Organization [facility] Address [address] [place] [address] Phone Care Team Providers Care Software Development Manager Name Role Phone Rufino Nix MD Primary Care Provider Allergies No known active allergies Medications quinapril [...] on file Legal Sex Female 11:59 AM SHOPPING INVESTIGATOR Gender Identity Not on file Sexual Orientation Not on file Last Filed Vital Signs Vital Sign Reading Time Taken Comments Blood Pressure 166/81 04/20/2019 8:20 AM SHOPPING INVESTIGATOR Pulse 51 04/20/2019 8:20 AM SHOPPING INVESTIGATOR Temperature 36.2 C (97.2 F) 04/20/2019 7:52 AM SHOPPING INVESTIGATOR Respiratory Rate 12 04/20/2019 8:20 AM SHOPPING INVESTIGATOR Oxygen Saturation 100% 04/20/2019 8:20 AM SHOPPING INVESTIGATOR Inhaled Oxygen Concentration - - Weight 134.3 kg (296 lb) 04/20/2019 6:45 AM SHOPPING INVESTIGATOR Height 160 cm (5' 3) 04/20/2019 6:45 AM SHOPPING INVESTIGATOR Body Mass Index 52.43 04/20/2019 6:45 AM SHOPPING INVESTIGATOR Plan of Treatment Health Maintenance Due Date [...] 1-dose 75+ series) [address] [place] [id number] [facility] [id number] [facility] Address: [place] [address] Care Teams Software Development Manager Relationship Specialty Start Date End Date Rufino Nix MD [address] [place] [id number] PCP - General Family Practice 04/19/19
--- OUTSIDE RECORDS SUMMARY | 2024-10-22 11:36 | XMS_ITS | Clinical Summary ---
Author Organization [facility] Address [address], [facility] [address] [place] [address] Phone Care Team Providers Care Loft Patternmaker Name Role Phone Rufino Nix MD Primary Care Provider [phone] Usama Figueroa DO Unavailable [phone] Allergies No known active allergies Medications [...] Most Recently Relevant to Health Maintenance [place] [id number] MEDICARE [facility] Care Teams Loft Patternmaker Relationship Specialty Start Date End Date Rufino Nix MD [address] [place], [place] [phone] PCP - General Family Medicine 06/18/15 Usama Figueroa DO [address] [place] [address] [phone] Gastroenterology 06/18/15
--- OUTSIDE RECORDS SUMMARY | 2024-10-22 11:36 | XMS_ITS | Continuity of Care Document ---
Author Organization [facility] Address [address] [place] [address] [place] [address] Phone Care Team Providers Care Pharmaceutical Physician Name Role Phone Mcneal OD, Usama Unavailable Unavailable Procedures Procedure Date Office/outpatient Visit, Est Eye Exam Established Pt Advance Directives Directive Yes / No Effective Date File Name No Information Encounters Encounter Description Practice Location Reason(s) For Visit Diagnoses Date Provider Providers Copied on Encounter Office/outpat ient Visit, Est [facility], [address] [place] [address] [address], [place], [place], [id number], tel:[phone] [facility] No Information Oct-0 5-201 0 Mcneal OD Usama. [address], [place], [place], [facility], [place]. tel:[phone] [facility], [address] [place] [address] [address], [place], [place], [id number], tel:[phone] [facility] No Information Aug- 3-201 0 Mcneal OD Usama. [address], [place], [address], . tel:[phone] Family History Family Member Type Diagnosis Age At Onset No Information Payers Payer name Insurance type Covered libertarian ID Authoriza tion(s) No Information Social History [...]
--- NOTE | 2024-11-01 15:58 | WPDHOLTEREM ---
Holter/Event Monitor Holter/Event Monitor Date of procedure: 10/22/24 Holter/Event Procedure: 3-7 Day Holter Monitor Indications: Palpitations Conclusion: 1. 3 days holter monitor on 10/22/24. 2. Predominant rhythm is sinus rhythm. HR range 56-152 bpm; average HR 75 bpm. 3. There are rare premature supraventricular complexes, rare supraventricular couplets, and rare supraventricular triplets. There is 1 episode of supraventricular tachycardia at 152 bpm lasting 4 beats. 4. There are rare premature ventricular complexes. No ventricular tachycardia. 5. No significant pauses greater than 3 seconds. 6. Patient reports 2 episodes of symptoms of fluttering, irregular beats which demonstrate sinus rhythm, HR range 70-74 bpm with 1 episode with PVC.
== END 2024-10-22 11:10 | disposition home or self-care (01) ==
PROVIDERS: PCP Nurse Practitioner; Visit Provider Nurse Practitioner
DX: I49.1 Atrial premature depolarization (principal); I47.10 Supraventricular tachycardia, unspecified; I49.3 Ventricular premature depolarization; R00.2 Palpitations
CPT/HCPCS: 93242